=== PATIENT | male | born 1960 | race Two or more races ===

== ENCOUNTER 2024-05-18 12:39 | Inpatient (IN) | payer MEDICAID, OTHER ==
[~2024-05-18] VITALS: Ht 167.6 cm; Wt 79.4 kg
[2024-05-18 14:21] LABS: Urine Bacteria None Seen /hpf (None Seen)
[2024-05-18 14:50] LABS: Urine Blood Negative /uL (Negative); Urine Clarity Turbid (Clear); Urine Color Light-Yellow (Yellow); Urine Mucus FEW (None Seen); Urine Protein, UAD TRACE (Negative); Urine Specific Gravity 1.018 (1.001-1.035); Urine Urobilinogen Normal (Negative); Urine WBC 22 /hpf (0 - 3)
[2024-05-18] MEDS ORDERED: TAMS-35 PO (15:14)
[2024-05-18] MEDS ORDERED: CIPR-173 PO (15:14)
[2024-05-18 16:59] LABS: Hematocrit 43.8 % (41.0-53.0); Hemoglobin 15.3 g/dL (13.5-17.5); Mean Corpuscular Hemoglobin 29.3 pg (28.0-32.0); Mean Corpuscular Hgb Conc. 34.9 g/dL (32.0-36.0); Mean Corpuscular Volume 83.9 fL (80.0-100.0); Platelet Count (auto) 319 10^3/uL (140-450); Red Blood Cells 5.22 10^6/uL (4.5-5.90); Red Cell Distribution Width 13.4 % (11.8-14.3); White Blood Cell 8.3 10^3/uL (4.4-10.8)
[2024-05-18 17:05] LABS: Anion Gap 5 (5-15); Carbon Dioxide 26 mmol/L (20-31); Chloride 107 mmol/L (98-107); Potassium 4.1 mmol/L (3.5-5.1); Sodium 138 mmol/L (136-145)
[2024-05-18 17:06] LABS: Calcium 9.9 mg/dL (8.7-10.4)
[2024-05-18] MEDS: ONDANSETRON HCL 4 MG/2 ML VIAL IV ONE (17:10)
[2024-05-18] MEDS: MORPHINE SULFATE 4 MG/ML SYR/VIAL IV ONE (17:10)
[2024-05-18 17:11] LABS: BUN/Creatinine Ratio 19.1 (10.0-20.0); Blood Urea Nitrogen 18 mg/dL (9-23); Glucose 105 mg/dL (74-106)
[2024-05-18 17:29] LABS: Band Neutrophils % (manual) 7; Basophils % (manual) 0 (0.0-2.0); Blast Cells 0; Eosinophils % (manual) 3 (0-7); Lymphocytes % (manual) 10 (10.0-50.0); Metamyelocytes % 1; Monocytes % (manual) 10 (0-12); Myelocytes % 1; Platelet Estimate Adequate; Promyelocytes % 0; RBC Morphology Normal; Reactive Lymphocytes 0
[2024-05-18 19:30] VITALS: RESP 16; O2SAT 96
[2024-05-18] MEDS ORDERED: MORPHINE SULFATE INJ 2 MG/ml SYRG IV PRN (19:30)
[2024-05-18] MEDS ORDERED: ONDANSETRON HCL 4 MG/2 ML VIAL IV PRN (19:30)
[2024-05-18] MEDS ORDERED: NITROGLYCERIN 0.4 MG SL TAB SL PRN (19:30)
[2024-05-18] MEDS: SODIUM CHLORIDE 0.9% 1,000 ML IV SCH (19:30)
[2024-05-18] MEDS: cefTRIAXone 1GM/50ML D5W 50 ML IV ONE (19:30)
[2024-05-18] MEDS: TAMSULOSIN HYDROCHLORIDE 0.4 MG CAP PO ONE (20:32)
[2024-05-18 22:11] VITALS: BP 130/82; PULSE 65; PULSE 88; RESP 18; TEMP 98.6; O2SAT 96
[2024-05-19 06:57] LABS: Basophils # (auto) 0.1 10 ^3/uL (0-0.2); Basophils % (auto) 0.7 % (0.0-2.0); Eosinophils # (auto) 0.2 10 ^3/uL (0-0.8); Hematocrit 40.5 % (41.0-53.0); Hemoglobin 13.9 g/dL (13.5-17.5); Lymphocytes # (auto) 1.2 10 ^3/uL (0.4-5.4); Lymphocytes % (auto) 10.3 % (10.0-50.0); Mean Corpuscular Hgb Conc. 34.4 g/dL (32.0-36.0); Mean Corpuscular Volume 84.4 fL (80.0-100.0); Monocytes # (auto) 0.9 10 ^3/uL (0-1.3); Monocytes % (auto) 7.7 % (0.0-12.0); Neutrophils # (auto) 9.3 10 ^3/uL (1.6-8.6); Neutrophils % (auto) 79.3 % (37.0-80.0); Nucleated Red Blood Cells % 0.3 %; Platelet Count (auto) 277 10^3/uL (140-450); Red Cell Distribution Width 13.2 % (11.8-14.3); White Blood Cell 11.7 10^3/uL (4.4-10.8)
[2024-05-19 07:16] LABS: Alanine Aminotransferase 32 U/L (7-40); Alkaline Phosphatase 75 U/L (46-116); Anion Gap 3 (5-15); Aspartate Aminotransferase 18 U/L (13-40); BUN/Creatinine Ratio 16.7 (10.0-20.0); Blood Urea Nitrogen 15 mg/dL (9-23); Calcium 9.1 mg/dL (8.7-10.4); Carbon Dioxide 25 mmol/L (20-31); Chloride 108 mmol/L (98-107); Glucose 108 mg/dL (74-106); Potassium 4.3 mmol/L (3.5-5.1); Sodium 136 mmol/L (136-145)
[2024-05-19 07:17] LABS: Bilirubin, Total 0.6 mg/dL (0.2-1.0); Total Protein 6.9 g/dL (5.7-8.2)
[2024-05-19 08:00] VITALS: PULSE 67; RESP 18; O2SAT 93
[2024-05-19 09:00] VITALS: BP_SYST 118; BP_SYST 121; BP_DIAS 71; BP_DIAS 80; PULSE 67; PULSE 97; RESP 18; RESP 20; TEMP 97.6; TEMP 98.5; O2SAT 91; O2SAT 93
[2024-05-19] MEDS: cefTRIAXone 1GM/50ML D5W 50 ML IV SCH (09:06)
[2024-05-19 13:00] VITALS: BP 119/69; PULSE 65; RESP 20; TEMP 97.8; O2SAT 95
[2024-05-19 17:00] VITALS: BP 112/58; PULSE 68; RESP 16; TEMP 98.3; O2SAT 94
[2024-05-19] MEDS: TAMSULOSIN HYDROCHLORIDE 0.4 MG CAP PO SCH (18:03)
[2024-05-19 21:00] VITALS: BP 109/61; PULSE 71; RESP 20; TEMP 98.5; O2SAT 93
[2024-05-20 01:00] VITALS: BP_SYST 120; BP_SYST 90; BP_DIAS 52; BP_DIAS 72; PULSE 68; RESP 18; TEMP 98.1; O2SAT 84
[2024-05-20 05:00] VITALS: BP 127/70; PULSE 66; RESP 20; TEMP 98.1; O2SAT 97
[2024-05-20 08:00] VITALS: PULSE 64
[2024-05-20] MEDS: DOCUSATE SOD 100 MG CAP PO PRN (08:04)
[2024-05-20 08:06] LABS: PSA Free 0.8 ng/mL; Prostate Specific Antigen 10.9 ng/mL (0.0-4.0)
[2024-05-20 09:00] VITALS: BP 149/84; PULSE 65; RESP 18; TEMP 98.3; O2SAT 94
[2024-05-20 13:00] VITALS: BP 134/77; PULSE 67; RESP 18; TEMP 98.2; O2SAT 94
[2024-05-20] MEDS ORDERED: TAMS-35 PO (15:38)
[2024-05-20] MEDS ORDERED: LEVO500T91 PO (15:38)
[2024-05-20] MEDS ORDERED: HYDR-4902 PO (15:43)
== END 2024-05-20 17:56 | disposition home or self-care (01) | DRG 463 ==
LOC: ER 12:39 → OVERFLOW 19:34 → WEST WING 22:11
PROVIDERS: ADMIT Nurse Practitioner Family; ATTEND Internal Medicine
DX: N30.00 Acute cystitis without hematuria (principal); K76.89 Other specified diseases of liver; N40.1 Benign prostatic hyperplasia with lower urinary tract symptoms; R51.9 Headache, unspecified; R33.8 Other retention of urine; Z79.899 Other long term (current) drug therapy; Z83.3 Family history of diabetes mellitus; Z82.49 Family history of ischemic heart disease and other diseases of the circulatory system; Z84.1 Family history of disorders of kidney and ureter
CPT/HCPCS: 36415; 70450; 74176; 76705; 80048; 80053; 81001; 84154; 85007; 85025; 85027; 87086; G0378; J2405

== ENCOUNTER 2024-05-30 14:54 | Emergency (ER) | payer MEDICAID ==
[~2024-05-30] VITALS: Ht 167.6 cm; Wt 76.7 kg
[~2024-05-30 14:54] MED LIST: HYDR-4902 PO; LEVO500T91 PO; TAMS-35 PO
[2024-05-30 15:58] VITALS: BP 128/84; PULSE 95; RESP 18; TEMP 98; O2SAT 96
== END 2024-05-30 16:00 | disposition home or self-care (01) ==
LOC: ER 14:54
DX: T83.038A Leakage of other urinary catheter, initial encounter (principal); Z79.899 Other long term (current) drug therapy; Y92.89 Other specified places as the place of occurrence of the external cause